=== PATIENT | female | born 1985 | race Caucasian/White ===

== ENCOUNTER 2018-09-11 03:57 | Emergency (ER) | payer BC ==
[~2018-09-11] VITALS: Ht 167.6 cm; Wt 95.5 kg
[2018-09-11 04:01] VITALS: BP 142/95; TEMP 98.4
[2018-09-11 05:30] VITALS: PULSE 83
== END 2018-09-11 05:48 | disposition home or self-care (01) ==
LOC: COL.ER 03:57
DX: J02.0 Streptococcal pharyngitis (principal)
CPT/HCPCS: J0561; J8540